=== PATIENT | female | born 1995 | race Hispanic/Latino ===

== ENCOUNTER 2017-06-15 09:04 | Emergency (ER) | payer OTHER, BC ==
[2017-06-15 09:19] VITALS: O2SAT 98; BMI 24.0
--- NOTE | 2017-06-15 09:57 | C.PDOC ---
History Of Present Illness CO HEAD INJURY ONSET YEST WHILE @ WORK. PS CLEANING UNDER METALLIC LEDGE, "I DIDNT REALIZE I WAS STILL UNDER IT WHEN I STOOD UP". CO INJURY TO BACK/BASE OF HEAD. +LOC, PS "COULDNT REMEMBER WHAT MY BOSS WAS SAYING", +NAUSEA. CO PERSIST NAUSEA NOW. DENIES OTHER ASSOC SX, HO MIGRAINE. NO PAIN MEDS TAKEN. LMP 1 WL EXAM MILD DIST NONTOXIC HEENT +DIFF TEND OCCIPITAL AREA NO DEFORM/DEPRESSION NECK SUPPLE NO CSPINE TEND NEURO NO FOCAL DEF SKIN INTACT REMAINDER NEG Time Seen by Provider: 06/15/17 09:50 Chief Complaint (Nursing): Trauma History Per: Patient History/Exam Limitations: no limitations Onset/Duration Of Symptoms: Days Severity: Moderate Past Medical History Reviewed: Historical Data, Nursing Documentation, Vital Signs Vital Signs: Last Vital Signs Temp 97.9 F 06/15/17 11:11 Pulse 71 06/15/17 11:11 Resp 18 06/15/17 11:11 BP 102/74 06/15/17 11:11 Pulse Ox 98 06/15/17 11:43 - Medical History PMH: Seizures (epilepsy) Surgical History: No Surg Hx Family History: States: No Known Family Hx - Social History Hx Alcohol Use: Yes Hx Substance Use: No - Immunization History Hx Tetanus Toxoid Vaccination: No Hx Influenza Vaccination: No Hx Pneumococcal Vaccination: No Review Of Systems Except As Marked, All Systems Reviewed And Found Negative. Gastrointestinal: Positive for: Nausea Neurological: Positive for: Other (head injury). Negative for: Weakness, Numbness Physical Exam - Physical Exam Appears: Non-toxic, Other (mild distress) Skin: Normal Color, Warm Head: Tenderness (diffuse tenderness occipital area), Other (no deformity/ depression) Eye(s): bilateral: Normal Inspection Neck: No Midline Cervical Tenderness, Supple Neurological/Psych: Oriented x3, Normal Speech, Other (no focal deficits) ED Course And Treatment - Laboratory Results Urine POC: Negative O2 Sat by Pulse Oximetry: 98 (RA) Pulse Ox Interpretation: Normal Reevaluation Time: 11:09 Reassessment Condition: Improved Medical Decision Making Medical Decision Making: Plan: --Motrin PO --Tylenol PO --Zofran PO --CT-Head --POC Test Disposition Counseled Patient/Family Regarding: Studies Performed, Diagnosis, Need For Followup, Rx Given - Disposition Referrals: [facility] [Outside] [facility] [Outside] Disposition: HOME/ ROUTINE Disposition Time: 11:10 Condition: IMPROVED Prescriptions: Ibuprofen [Motrin] 600 mg PO Q6 #30 tab Ondansetron [Zofran Odt] 4 mg PO TID PRN #9 odt PRN Reason: Nausea/Vomiting Instructions: Concussion, Adult (DC) Forms: [facility] (Dominican), Work Excuse - Clinical Impression Clinical Impression: Concussion with no loss of consciousness - Scribe Statement The provider has reviewed the documentation as recorded by the Lynibe Mayito Marks Provider Attestation: All medical record entries made by the Scribe were at my direction and personally dictated by me. I have reviewed the chart and agree that the record accurately reflects my personal performance of the history, physical exam, medical decision making, and the department course for this patient. I have also personally directed, reviewed, and agree with the discharge instructions and disposition.
--- NOTE | 2017-06-15 10:59 | CT ---
PROCEDURE: CT HEAD WITHOUT CONTRAST. HISTORY: TRAUMA COMPARISON: None available. TECHNIQUE: Axial computed tomography images were obtained through the head/brain without intravenous contrast. Radiation dose: Total exam DLP = 757.8 mGy-cm. This CT exam was performed using one or more of the following dose reduction techniques: Automated exposure control, adjustment of the mA and/or kV according to patient size, and/or use of iterative reconstruction technique. FINDINGS: HEMORRHAGE: No intracranial hemorrhage. BRAIN: No mass effect or edema. No atrophy or chronic microvascular ischemic changes. VENTRICLES: Unremarkable. No hydrocephalus. CALVARIUM: Unremarkable. PARANASAL SINUSES: Unremarkable as visualized. No significant inflammatory changes. MASTOID AIR CELLS: Unremarkable as visualized. No inflammatory changes. OTHER FINDINGS: None. IMPRESSION: No acute intracranial pathology.
[2017-06-15 11:12] VITALS: BP 102/74; PULSE 71; RESP 18; TEMP 97.9
== END 2017-06-15 11:30 | disposition home or self-care (01) ==
LOC: C.ER 09:04
DX: S06.0X0A Concussion without loss of consciousness, initial encounter (principal); W22.8XXA Striking against or struck by other objects, initial encounter; Y99.0 Civilian activity done for income or pay